=== PATIENT | male | born 1990 | race Two or more races ===

== ENCOUNTER 2024-07-11 02:19 | Emergency (ER) | payer SELFPAY ==
[2024-07-11 02:20] VITALS: BMI 23.7
[2024-07-11 02:32] VITALS: BP 144/84; PULSE 112; RESP 19; TEMP 37.6; O2SAT 100
--- NOTE | 2024-07-11 02:41 | PD.EDRME ---
Rapid Medical Screening Exam [facility] Arrival date/time: 07/11/24 02:19 34M with history of meth use presents to ED with 3 days of worsening KHAN and neck stiffness/pain, as well as some URI symptoms. Chief Complaint: Headache Vital signs: Vital Signs Temperature 99.7 F 07/11/24 02:32 Pulse Rate 112 H 07/11/24 02:32 Respiratory Rate 19 07/11/24 02:32 Blood Pressure 144/84 H 07/11/24 02:32 Pulse Oximetry (%) 100 07/11/24 02:32 Oxygen Delivery Method Room Air 07/11/24 02:32
[2024-07-11 03:15] LABS: Lactate (Lactic Acid) 1.2 mMol/L (0.4-2.0)
[2024-07-11 03:20] LABS: Basophils % (Auto) 0 % (0-2.5); Eosinophils # (Auto) 0.1 Thou/mm3 (0.0-0.5); Eosinophils % (Auto) 1 % (0-10); Hematocrit 42.4 % (41.0-53.0); Immature Granulocytes % (Auto) 0 % (0-0); Immature Granulocytes Auto 0.04 Thou/mm3 (0.00-0.00); Lymphocytes % (Auto) 8 % (10-50); Mean Corpuscular HGB Conc 35.4 g/dl (31.0-37.0); Mean Corpuscular Hemoglobin 29.3 pg (25.0-35.0); Mean Corpuscular Volume 83 fL (80-100); Monocytes # (Auto) 0.9 Thou/mm3 (0.0-0.8); Monocytes % (Auto) 7 % (0-12); Neutrophils # (Auto) 10.4 Thou/mm3 (1.8-7.7); Neutrophils % (Auto) 84 % (37-80); Nucleated Red Blood Cell % 0 /100 WBC (0); Platelet Count 183 Thou/mm3 (140-440); RDW Standard Deviation 37.3 fL (35.1-43.9); Red Blood Count 5.12 Miln/mm3 (4.50-5.90); White Blood Count 12.4 Thou/mm3 (3.8-10.6)
[2024-07-11 03:21] LABS: Strep A Rapid Negative (Negative)
[2024-07-11] MEDS: SODIUM CHLORIDE 0.9% 1000 ML 1,000 ML 999 ML IV ×2 (03:22→04:28)
[2024-07-11] MEDS: KETOROLAC INJ 30 MG/ML VIAL IVP (03:23)
[2024-07-11 03:43] LABS: Alanine Aminotransferase 26 U/L (10-49); Albumin, Serum 4.3 gm/dL (3.5-5.0); Albumin/Globulin Ratio 1.4 (1.2-2.2); Alkaline Phosphatase 67 U/L (46-116); Anion Gap 2 (7-16); Aspartate Amino Transferase 29 U/L (0-34); BUN/Creatinine Ratio 12 Ratio (12-20); Bilirubin,Total 0.9 mg/dL (0.3-1.2); Blood Urea Nitrogen 11 mg/dL (9-23); Calcium 9.4 mg/dL (8.3-10.6); Calcium (Corrected) 9.4 mg/dL (8.5-10.1); Carbon Dioxide 30.7 mMol/L (20.0-31.0); Chloride 103 mMol/L (98-107); Creatinine (Component) 0.9 mg/dL (0.6-1.3); Estimated Creatinine Clearance 126.9 mL/min (>60); Glucose 115 mg/dL (74-106); Osmolality,Calculated 272 (275-295); Potassium 4.3 mMol/L (3.4-5.1); Procalcitonin 0.09 ng/ml (0.0-0.49); Sodium 136 mMol/L (136-145); Total Protein 7.3 gm/dL (5.7-8.2); eGFR > 60 See Note
--- NOTE | 2024-07-11 04:13 | PD.EDHA ---
ED Headache RME/HPI General Chief Complaint: Headache Stated Complaint: HEADACHE X 3DAYS Arrival date/time: 07/11/24 02:19 RME / HPI RME / HPI Narrative: 07/11/24 02:19 34M with history of meth use presents to ED with 3 days of worsening KHAN and neck stiffness/pain, as well as some URI symptoms. ----- Dr. Burgos?s Main ED Evaluation: 34yo male presents to the ED for multiple complaints. Patient states he's had an intermittent cough, headache, earache, runny nose, and generalized weakness for the last few days. He reports associated generalized body aches and a sore throat. He denies any N/V/D, fever, chills, abdominal pain or any other associated symptoms. No known medications. Patient states he feels significantly better compared to when he initially came in. Related Data Previous Rx's ?Medication ?Instructions ?Recorded azithromycin 250 mg tablet See Rx Instructions PO .COMPLEX #6 08/17/18 tabs guaifenesin 100 mg/5 mL oral liquid 200 mg (10 mL) PO Q4H PRN cold 08/17/18 symptoms #118 mL ibuprofen 800 mg tablet 800 mg PO QID PRN fever or pain 08/17/18 #30 tabs ibuprofen 800 mg tablet 800 mg PO TID PRN pain #30 tabs 12/05/22 sulfamethoxazole 800 1 tab PO BID #20 tabs 12/05/22 mg-trimethoprim 160 mg tablet (Bactrim DS) acetaminophen 500 mg capsule 1,000 mg (2 x 500 mg) PO Q6H PRN 07/11/24 fever or pain 5 days #20 caps azithromycin 250 mg tablet 250 mg PO QDAY 6 days #6 tabs 07/11/24 (Zithromax) ibuprofen 600 mg tablet 600 mg PO Q6H PRN fever or pain 5 07/11/24 days #20 tabs Allergies Allergy/AdvReac Type Severity Reaction Status Date / Time No Known Allergies Allergy Verified 04/25/21 17:15 Review of Systems Review of Systems Systems Reviewed: All systems reviewed, normal except as documented Past Medical History Past Medical History CARDIAC: Negative Cardiac Disorders or Congestive Heart Failure RESPIRATORY: Negative Chronic Obstructive Pulmonary Disease (COPD) or Asthma GENITOURINARY: Negative Renal Disease ENDOCRINE: Negative Diabetes Mellitus Type 1 or Diabetes Mellitus Type 2 HEMATOLOGIC: Negative Sickle Cell Disease Social History SMOKING STATUS: Never smoker ED Exam Narrative Physical exam: GENERAL APPEARANCE: alert and oriented x 4, well-developed, well-nourished, no acute distress VITALS: All vitals were reviewed and the pulse ox is 100% on room air, which is normal according to my interpretation. HEENT: Normocephalic, atraumatic; pupils equal, round, reactive to light; EOMI; mucous membranes pink, moist; posterior oropharyngeal injection without exudates NECK: Supple LUNGS: CTABL; no wheezes, no rales, no rhonchi HEART: Tachycardic, regular rhythm; normal S1, S2; no murmurs ABDOMEN: non distended; normal BS; soft, no tenderness, no guarding, no rebound; no masses, no organomegaly, no hernia BACK: no CVA tenderness EXTREMITIES: atraumatic; no edema NEUROLOGIC: awake; alert and oriented x4; cranial nerves II-XII grossly intact; no focal sensory or motor deficits PSYCHIATRIC: appropriate mood and affect SKIN: hot to touch, dry, normal color; no rashes Course Course Course Narrative: CXR is ordered for determining the etiology of cough. Quality Measures none Orders Category Date Time Status Bedside COVID-19 Antigen Test NOW Care 07/11/24 02:39 Completed Bedside Influenza A&B Antigen Test NOW Care 07/11/24 02:40 Completed Lance Crewmember/Mlrs Sergeant STAT Care 07/11/24 04:21 Completed Continuous Pulse Oximetry STAT Care 07/11/24 04:21 Completed Insert IV NOW Care 07/11/24 02:39 Completed XR chest 2V Stat Exams 07/11/24 04:20 Taken Blood Culture (Lab) Stat Lab 07/11/24 03:10 Received CBC Stat Lab 07/11/24 03:12 Completed CMP [Comprehensive Metabolic Panel] Stat Lab 07/11/24 03:12 Completed LDH (Lactate Dehydrogenase) Stat Lab 07/11/24 03:12 Completed Lactate (Lactic Acid) Stat Lab 07/11/24 03:12 Completed Lipase Stat Lab 07/11/24 03:12 Completed Magnesium Stat Lab 07/11/24 03:12 Completed Phosphorous Stat Lab 07/11/24 03:12 Completed Procalcitonin Stat Lab 07/11/24 03:12 Completed Strep A Rapid Stat Lab 07/11/24 02:43 Completed Acetaminophen Ivpb [Ofirmev Inj] Med 07/11/24 04:23 Discontinued 1,000 mg in 100 ml IV Q6HR Ketorolac Inj [Toradol Inj] Med 07/11/24 02:41 Discontinued 30 mg IVP X1 ONE Sodium Chloride 0.9% 1000 ml [Ns] 1,000 ml Med 07/11/24 02:40 Discontinued IV 999 mls/hr Sodium Chloride 0.9% 1000 ml [Ns] 1,000 ml Med 07/11/24 04:23 Discontinued IV 999 mls/hr Vital Signs Vital signs: Vital Signs Temperature 99.7 F 07/11/24 02:32 Pulse Rate 112 H 07/11/24 02:32 Respiratory Rate 19 07/11/24 02:32 Blood Pressure 144/84 H 07/11/24 02:32 Pulse Oximetry (%) 100 07/11/24 02:32 Oxygen Delivery Method Room Air 07/11/24 02:32 Headache Patient data External records reviewed:: [facility] previous records (Per chart review, patient has no relevant previous ED visits or admissions to this facility.) Clinical information provided by:: patient Social determinants that could affect healthcare access:: substance use (history of methamphetamine use) Patient has the following chronic illnesses:: none How is presenting disease/condition affected by chronic disease/condition?: no chronic disease Evaluation data The following diagnostics were reviewed and interpreted by me:: lab results and radiology exam(s) Lab and/or radiology exams considered but not ordered:: none Interpretation Summary: Bedside COVID and Influenza are negative, Strep swab is negative, WBC count is elevated at 12.4, CMP is normal, Lactate is normal, Procalcitonin is normal, according to my interpretation. CXR is negative for rib fractures, normal cardiac silhouette, sharp diaphragmatic edge, but does show a right middle and left lower lobe infiltrates, according to my interpretation. Medications / Prescriptions Medications or Prescriptions considered but not ordered:: none Medication administrations:: Medication Administration History Discontinued Medications Sodium Chloride (Ns) 1,000 mls @ 999 mls/hr IV .Q1H1M ONE Stop: 07/11/24 03:40 Last Infusion: 07/11/24 04:01 Dose: Infused Documented By: Admin: 07/11/24 03:22 Dose: 999 mls/hr Documented By: SONJA Acetaminophen (Ofirmev Inj) 1,000 mg in 100 mls @ 250 mls/hr IV Q6HR NIRMAL Stop: 07/12/24 00:23 Last Infusion: 07/11/24 04:49 Dose: Infused Documented By: Admin: 07/11/24 04:32 Dose: 250 mls/hr Documented By: SONJA Sodium Chloride (Ns) 1,000 mls @ 999 mls/hr IV .Q1H1M ONE Stop: 07/11/24 05:23 Last Admin: 07/11/24 04:28 Dose: 999 mls/hr Documented By: SONJA Ketorolac Tromethamine (Ketorolac Inj 30 Mg/Ml Vial) 30 mg IVP X1 ONE Stop: 07/11/24 02:42 Last Admin: 07/11/24 03:23 Dose: 30 mg Documented By: SONJA see above Consultations Consultation(s) initiated? (list below): No Diagnosis Differential diagnosis headache: tension headache, headache and other (COVID, Influenza, URI, pneumonia) Most likely diagnosis given after review of the tests above:: see below Admission Indicated Admission indicated?: not indicated Admission Request Was there a request for admission?: No Disposition Plan Disposition Plan: Discharge Discharge Attestation Discharge Attestation: The patient and all family members were given an opportunity to ask questions and understood the discharge instructions. Discharge instructions specifically effects, indications for sooner follow up or return to the emergency department, and the expected course of current diagnosis. Patient condition: Stable Discharge Plan Plan Patient Disposition: HOME (Self Care) Disposition Comment: Stable for discharge Patient condition on transfer: Stable Prescriptions/Referrals Prescriptions/Med Rec: New azithromycin [Zithromax] 250 mg tablet 250 mg PO QDAY 6 Days Qty: 6 0RF Rx Instructions: start on day 2 of therapy ibuprofen 600 mg tablet 600 mg PO Q6H PRN (Reason: fever or pain) 5 Days Qty: 20 0RF acetaminophen 500 mg capsule 1,000 mg PO Q6H PRN (Reason: fever or pain) 5 Days Qty: 20 0RF No Action azithromycin 250 mg tablet See Rx Instructions .ROUTE .COMPLEX Qty: 6 0RF Rx Instructions: take 2 tabs on the first day and take 1 tablet for the remaining 4 days. ibuprofen 800 mg tablet 800 mg PO QID PRN (Reason: fever or pain) Qty: 30 0RF guaifenesin 100 mg/5 mL liquid 200 mg PO Q4H PRN (Reason: cold symptoms) Qty: 118 0RF sulfamethoxazole-trimethoprim [Bactrim DS] 800-160 mg tablet 1 tab PO BID Qty: 20 0RF ibuprofen 800 mg tablet 800 mg PO TID PRN (Reason: pain) Qty: 30 0RF Referrals: Paco Barney MD [Primary Care Provider] - In 1 week Problem List Clinical Impression: Community acquired pneumonia Patient/Caregiver Discharge Instructions Discharge Activity: activity as tolerated Education Materials: What Is Pneumonia?, Treating Pneumonia, When You Have Pneumonia, ED Pneumonia (Adult) Additional Instructions: Your chest x-ray shows that you have a pneumonia. You should take the antibiotics until they are completely gone, even if you feel better before then. Take the Motrin and Tylenol as needed for fever and/or bodyaches and pains. Please return to the ER if you feel like you are getting sicker in any way Otherwise follow-up with your primary care doctor within the next several days Print Language: Slovenian Stand Alone Forms: Li Award Info., Work/School Release, Patient Portal Info Letter
--- NOTE | 2024-07-11 04:20 | XR_ITS ---
Examination: PA lateral chest 2 views Technique: Upright PA lateral chest 2 views Exam date and time: July 11, 2024 0438 hrs. Comparison December 05, 2022 Indications: Coughing fever chills beginning 3 days ago. Findings: Nodular parenchymal disease in both upper lobes Normal heart size The osseous structures are intact Impression: Bilateral upper lobe pneumonia significant right upper lobe, follow-up imaging is needed to document clearing
[2024-07-11 04:24] VITALS: BP 124/75; BP 130/77; PULSE 91; PULSE 97; RESP 17; TEMP 37.4; O2SAT 97; O2SAT 98
[2024-07-11] MEDS: ACETAMINOPHEN IVPB 1,000 MG/100 ML VIAL 250 MG IV (04:32)
[2024-07-11 05:09] LABS: LDH (Lactate Dehydrogenase) 216 U/L (120-246); Lipase 48 U/L (12-53); Magnesium 1.8 mg/dL (1.6-2.6); Phosphorous 2.1 mg/dL (2.4-5.1)
[2024-07-11 05:43] VITALS: BP 126/77; PULSE 91; RESP 18; O2SAT 98
== END 2024-07-11 05:44 | disposition home or self-care (01) ==
PROVIDERS: Physician Assistant; Emergency Provider Emergency Medicine; PCP Family Medicine
DX: J18.9 Pneumonia, unspecified organism (principal)
CPT/HCPCS: 36415; 71046; 80053; 80061; 80307; 83605; 83615; 83690; 83735; 84100; 84145; 85025; 87040; 87400; 87651; 87811; 96361; 96365; 99284; J0131; J1885; J7030

== ENCOUNTER 2024-09-28 06:33 | Emergency (ER) | payer BC, SELFPAY ==
[2024-09-28 06:33] VITALS: BMI 24.6
[2024-09-28 06:42] VITALS: BP 122/70; PULSE 113; RESP 19; TEMP 37.6; O2SAT 98
--- NOTE | 2024-09-28 06:49 | EDNOTE_ITS ---
Upper Respiratory Inf. RME/HPI General Chief Complaint: Weakness Stated Complaint: weakness, headache Time Seen by Provider: 09/28/24 06:51 Source: patient Arrival date/time: 09/28/24 06:33 34-year-old male with no known medical history presents to the emergency room with a chief complaint of cough, congestion, weakness, headache x 2 days Mode of arrival: ambulatory Limitations: no limitations Related Data Previous Rx's ?Medication ?Instructions ?Recorded azithromycin 250 mg tablet See Rx Instructions PO .COM PLEX #6 08/17/18 tabs guaifenesin 100 mg/5 mL oral liquid 200 mg (10 mL) PO Q4H PRN cold 08/17/18 symptoms #118 mL ibuprofen 800 mg tablet 800 mg PO QID PRN fever or p ain 08/17/18 #30 tabs ibuprofen 800 mg tablet 800 mg PO TID PRN pain #30 t abs 12/05/22 sulfamethoxazole 800 1 tab PO BID #20 tabs mg-trimethoprim 160 mg tablet (Bactrim DS) amoxicillin 875 mg-potassium 1 tab PO BID 7 days #14 t abs 09/28/24 clavulanate 125 mg tablet Allergies Allergy/AdvReac Type Severity Reaction Status Date / Time No Known Allergies Allergy Verified 04/25/21 17:15 Review of Systems Review of Systems Systems Reviewed: All systems reviewed, normal except as documented Constitutional Constitutional: Reports system reviewed and no additional complaints, except as documented, Reports fatigue, Reports fever(s), Reports headache(s) and Reports weakness Eyes Eyes: Reports system reviewed and no additional complaints, except as documented, Denies blurry vision and Denies change in vision ENT Ears, Nose, Mouth, and Throat: Reports system reviewed and no additional complaints, except as documented, Denies otalgia, Reports headache(s), Denies nasal congestion, Denies throat swelling and Denies vertigo Cardiovascular Cardiovascular: Reports system reviewed and no additional complaints, except as documented, Denies chest pain, Denies dyspnea and Denies dyspnea on exertion Respiratory Respiratory: Reports system reviewed and no additional complaints, except as documented, Reports chest congestion, Reports cough, Denies dyspnea, Denies dyspnea on exertion and Denies wheezing Gastrointestinal Gastrointestinal: Reports system reviewed and no additional complaints, except as documented, Denies abdominal pain, Denies cramping, Denies nausea and Denies vomiting Genitourinary Genitourinary: Reports system reviewed and no additional complaints, except as documented, Denies dysuria and Denies hematuria Musculoskeletal Musculoskeletal: Reports system reviewed and no additional complaints, except as documented and Denies back pain Integumentary/Breasts Skin/Breast: Reports system reviewed and no additional complaints, except as documented and Denies wounds Neurologic Neurologic: Reports system reviewed and no additional complaints, except as documented, Denies confusion, Reports headache(s), Denies lack of coordination, Denies vertigo and Reports weakness Psychiatric Psychiatric: Reports system reviewed and no additional complaints, except as documented, Denies anxiety, Denies confusion, Denies depression, Denies paranoia, Denies suicidal ideation and Denies tactile hallucinations Endocrine Endocrine: Reports system reviewed and no additional complaints, except as documented and Reports fatigue Hematologic/Lymphatic Hematologic/Lymphatic: Reports system reviewed and no additional complaints, except as documented and Denies lymphadenopathy Allergic/Immunologic Allergic/Immunologic: Reports system reviewed and no additional complaints, except as documented, Denies throat swelling, Denies urticaria and Denies wheezing Past Medical History Past Medical History CARDIAC: Negative Cardiac Disorders or Congestive Heart Failure RESPIRATORY: Negative Chronic Obstructive Pulmonary Disease (COPD) or Asthma GENITOURINARY: Negative Renal Disease ENDOCRINE: Negative Diabetes Mellitus Type 1 or Diabetes Mellitus Type 2 HEMATOLOGIC: Negative Sickle Cell Disease Social History SMOKING STATUS: Never smoker ED Exam General Limitations: Present no limitations General appearance: Present alert and in no apparent distress Head Head exam: Present atraumatic Eye Eye exam: Present normal appearance, PERRL and EOMI ENT ENT exam: Present normal exam, normal oropharynx and mucous membranes moist Neck Neck exam: Present normal inspection, full ROM and trachea midline Chest Chest inspection: Present normal inspection and symmetric chest wall rise Respiratory Respiratory exam: Present normal lung sounds bilaterally; Absent respiratory dis tress, wheezes, stridor, accessory muscle use or prolonged expiratory phase Cardiovascular Cardiovascular exam: Present regular rate, normal rhythm, tachycardia and normal heart sounds Abdominal Exam Abdominal exam: Present soft and normal bowel sounds; Absent tenderness Extremities Exam Extremities exam: Present normal inspection and full ROM Back Exam Back exam: Present normal inspection and full ROM Neurological Exam Neurological exam: Present alert, oriented X3 and CN II-XII intact Psychiatric Psychiatric exam: Present normal affect and normal mood Skin Skin exam: Present warm, dry, intact and normal color Course Quality Measures none Orders Category Date Time Status Bedside COVID-19 Antigen Test NOW Care 09/28/24 06:49 Active Bedside Influenza A&B Antigen Test NOW Care 09/28/24 06:49 Completed XR chest 2V Stat Exams 09/28/24 06:49 Completed Acetaminophen Tab [Tylenol ES Tab] Med 09/28/24 06:49 Discontinued 1,000 mg PO X1 ONE Vital Signs Vital signs: Vital Signs Temperature 99.6 F 09/28/24 06:42 Pulse Rate 113 H 09/28/24 06:42 Respiratory Rate 19 09/28/24 06:42 Blood Pressure 122/70 09/28/24 06:42 Pulse Oximetry (%) 98 09/28/24 06:42 Oxygen Delivery Method Room Air 09/28/24 06:42 O2 saturation 98% within normal limits Upper Respiratory Infection MDM Narrative MDM Narrative:: 34-year-old male with no known medical history presents to the emergency room with a chief complaint of cough, congestion, weakness, headache x 2 days Patient is hemodynamically stable and in no apparent distress. Patient is afebrile O2 saturation is 98% on room air Patient's lung sounds are clear bilaterally there is no wheezing or any abnormal breath sounds Chest x-ray was completed and shows pneumonia to the right lung. Antibiotics are sent to the patient's pharmacy. COVID-19 and influenza were both negative. Patient was discharged and educated to follow-up with primary care provider and return to the emergency room for any evidence of worsening signs or symptoms Patient data External records reviewed:: [facility] previous records Clinical information provided by:: patient Social determinants that could affect healthcare access:: none Patient has the following chronic illnesses:: No chronic illness How is presenting disease/condition affected by chronic disease/condition?: no chronic disease Evaluation data The following diagnostics were reviewed and interpreted by me:: lab results and radiology exam(s) Lab and/or radiology exams considered but not ordered:: Labs and radiology exams considered and ordered Interpretation Summary: Chest [id number]: Fairly diffuse right lung pneumonia Suspicious for mild pneumonia left base Normal heart size The osseous structures are intact Impression: Fairly diffuse right lung pneumonia Medications / Prescriptions Medications or Prescriptions considered but not ordered:: Medication given Medication administrations:: Medication Administration History Discontinued Medications Acetaminophen (Acetaminophen 500 Mg Tablet) 1,000 mg PO X1 ONE Stop: 09/28/24 06:50 Last Admin: 09/28/24 07:08 Dose: 1,000 mg Documented By: DB Medication given Consultations Consultation(s) initiated? (list below): No Diagnosis Upper Respiratory Differential Diagnosis: upper respiratory infection, sinusitis, viral infection, bronchitis, influenza, pharyngitis and other (COVID-19/community-acquired pneumonia) Most likely diagnosis given after review of the tests above:: Community-acquired pneumonia Admission Indicated Admission indicated?: not indicated Admission Request Was there a request for admission?: No Disposition Plan Disposition Plan: Discharge Discharge Attestation Discharge Attestation: The patient and all family members were given an opportunity to ask questions and understood the discharge instructions. Discharge instructions specifically effects, indications for sooner follow up or return to the emergency department, and the expected course of current diagnosis. Patient condition: Stable Discharge Plan Plan Patient Disposition: HOME (Self Care) Disposition Comment: Stable Prescriptions/Referrals Prescriptions/Med Rec: New amoxicillin-pot clavulanate 875-125 mg tablet 1 tab PO BID 7 Days Qty: 14 0RF No Action azithromycin 250 mg tablet See Rx Instructions .ROUTE .COMPLEX Qty: 6 0RF Rx Instructions: take 2 tabs on the first day and take 1 tablet for the remaining 4 days. ibuprofen 800 mg tablet 800 mg PO QID PRN (Reason: fever or pain) Qty: 30 0RF guaifenesin 100 mg/5 mL liquid 200 mg PO Q4H PRN (Reason: cold symptoms) Qty: 118 0RF sulfamethoxazole-trimethoprim [Bactrim DS] 800-160 mg tablet 1 tab PO BID Qty: 20 0RF ibuprofen 800 mg tablet 800 mg PO TID PRN (Reason: pain) Qty: 30 0RF Referrals: No Primary/Family,Physician [Primary Care Provider] - In 1 week Problem List Clinical Impression: Community acquired pneumonia Patient/Caregiver Discharge Instructions Education Materials: ED Pneumonia (Adult) Additional Instructions: Please follow-up with your primary care provider in the next 24 to 48 hours. Your chest x-ray showed pneumonia. Antibiotics are sent to your pharmacy please pick them up and take them as indicated. For any evidence of worsening signs or symptoms return to the emergency room immediately Print Language: Persian Stand Alone Forms: Li Award Info., Work/School Release, Patient Portal Info Letter PA/KEISHA Supervising Physician PA/ARRESTING GEAR OPERATOR Supervising Physician: Dr Rodriguez
--- NOTE | 2024-09-28 06:49 | XR_ITS ---
Examination: PA lateral chest 2 views Technique: Upright PA lateral chest 2 views Exam date and time: September 28, 2024 0702 hrs. Comparison July 11, 2024 Indications: Coughing fever beginning 2 days ago. Findings: Fairly diffuse right lung pneumonia Suspicious for mild pneumonia left base Normal heart size The osseous structures are intact Impression: Fairly diffuse right lung pneumonia
[2024-09-28] MEDS: ACETAMINOPHEN 500 MG TABLET 1000 MG PO (07:08)
[2024-09-28 08:27] VITALS: BP 118/68; PULSE 107; RESP 20; TEMP 37.5; O2SAT 98
== END 2024-09-28 09:09 | disposition home or self-care (01) ==
PROVIDERS: Emergency Provider Emergency Medicine
DX: J18.9 Pneumonia, unspecified organism (principal)
CPT/HCPCS: 71046; 87400; 87811; 99283; A9270

== ENCOUNTER 2025-02-03 20:18 | Emergency (ER) | payer BC, SELFPAY ==
[2025-02-03 20:18] VITALS: BMI 26.9
[2025-02-03 20:37] VITALS: BP 132/81; PULSE 118; RESP 18; TEMP 36.9; O2SAT 99
--- NOTE | 2025-02-03 20:43 | XR_ITS ---
Examination: Venous duplex lower extremity sonogram, bilateral. Date and time of exam: February 03, 2025 2114 hours INDICATIONS: Bilateral leg swelling 3 days Technique: Multiple sonographic images of the deep venous system have been obtained. B-mode/2-D grayscale imaging of vascular structures and Doppler spectral analysis (waveforms) and color performed Both legs are examined. Findings: Deep venous systems do not demonstrate abnormal echogenicity. All visualized deep veins exhibit compressibility. All visualized deep veins exhibit augmentation. Impression: Negative for deep vein thrombosis
--- NOTE | 2025-02-03 20:43 | XR_ITS ---
Examination: PA chest single view Technique upright PA chest single view Date and time: February 03, 20252050 hours Comparison September 28, 2024 INDICATIONS: Bilateral leg swelling today. FINDINGS: No significant cardiac enlargement No pneumonia or pulmonary edema The osseous structures are intact IMPRESSION: No pneumonia or pulmonary edema
--- NOTE | 2025-02-03 20:44 | EKG_ITS ---
[facility] Test Date: 2025-02-03 Pat Name: RAZA RILEY Department: Room: - Gender: Male Inventory Transcriber: : 1990 Requested By: Kj Wang Order Number: [id number] Reading MD: Kj Wang Measurements Intervals [place] Rate: 123 P: 61 DC: 161 QRS: 31 QRSD: 93 T: 52 QT: 301 QTc: 432 Interpretive Statements SINUS TACHYCARDIA ABNORMAL RHYTHM ECG Compared to ECG 12/05/2022 12:54:47 No significant changes /store/S0/[id number].pdf
--- NOTE | 2025-02-03 20:44 | PD.EDRME ---
Rapid Medical Screening Exam [facility] Arrival date/time: 02/03/25 20:18 34M with history of meth use (yesterday) presents to ED with BLE swelling. Patient states he was kneeling on them. Patient denies current SOB. Chief Complaint: Extremity Injury, Lower Time Seen by Provider: 02/03/25 22:01 Vital signs: Vital Signs Temperature 98.4 F 02/03/25 20:37 Pulse Rate 118 H 02/03/25 20:37 Respiratory Rate 18 02/03/25 20:37 Blood Pressure 132/81 H 02/03/25 20:37 Pulse Oximetry (%) 99 02/03/25 20:37 Oxygen Delivery Method Room Air 02/03/25 20:37
[2025-02-03 21:06] LABS: Basophils % (Auto) 0 % (0-2.5); Eosinophils # (Auto) 0.2 Thou/mm3 (0.0-0.5); Eosinophils % (Auto) 2 % (0-10); Hematocrit 41.5 % (41.0-53.0); Hemoglobin 14.7 g/dL (13.5-16.0); Immature Granulocytes % (Auto) 1 % (0-0); Immature Granulocytes Auto 0.04 Thou/mm3 (0.00-0.00); Lymphocytes # (Auto) 2.9 Thou/mm3 (1.0-4.8); Lymphocytes % (Auto) 32 % (10-50); Mean Corpuscular HGB Conc 35.4 g/dl (31.0-37.0); Mean Corpuscular Hemoglobin 28.8 pg (25.0-35.0); Mean Corpuscular Volume 81 fL (80-100); Monocytes # (Auto) 1.5 Thou/mm3 (0.0-0.8); Monocytes % (Auto) 16 % (0-12); Neutrophils # (Auto) 4.3 Thou/mm3 (1.8-7.7); Neutrophils % (Auto) 48 % (37-80); Nucleated Red Blood Cell % 0 /100 WBC (0); Platelet Count 252 Thou/mm3 (140-440); RDW Standard Deviation 37.2 fL (35.1-43.9); Red Blood Count 5.11 Miln/mm3 (4.50-5.90); White Blood Count 8.8 Thou/mm3 (3.8-10.6)
[2025-02-03 21:23] LABS: B-Type Natriuretic Peptide 36 pg/mL (0-100)
[2025-02-03 21:25] LABS: Alanine Aminotransferase 31 U/L (10-49); Albumin, Serum 3.8 gm/dL (3.5-5.0); Albumin/Globulin Ratio 1.8 (1.2-2.2); Alkaline Phosphatase 48 U/L (46-116); Anion Gap 7 (7-16); Aspartate Amino Transferase 27 U/L (0-34); BUN/Creatinine Ratio 7 Ratio (12-20); Bilirubin,Total 0.5 mg/dL (0.3-1.2); Blood Urea Nitrogen 7 mg/dL (9-23); Calcium 9.4 mg/dL (8.3-10.6); Calcium (Corrected) 9.6 mg/dL (8.5-10.1); Carbon Dioxide 28.6 mMol/L (20.0-31.0); Chloride 105 mMol/L (98-107); Estimated Creatinine Clearance 114.2 mL/min (>60); Globulin 2.1 gm/dL (2.3-3.5); Glucose 104 mg/dL (74-106); Osmolality,Calculated 279 (275-295); Potassium 3.6 mMol/L (3.4-5.1); Sodium 141 mMol/L (136-145); Total Protein 5.9 gm/dL (5.7-8.2); Troponin I < 0.020 ng/mL (0.0-0.045); eGFR > 60 See Note
[2025-02-03] MEDS: ACYCLOVIR 800 MG TABLET PO (22:35)
[2025-02-03] MEDS: DOXYCYCLINE 100 MG TABLET PO (22:35)
[2025-02-03] MEDS: cefTRIAXone 500 MG, LIDOCAINE 1% 20 ML 1 ML IM (22:37)
--- NOTE | 2025-02-04 00:59 | EDNOTE_ITS ---
ED Extremity Problem RME/HPI General Chief complaint: Extremity Injury, Lower Stated complaint: SWOLLEN LEGS Time Seen by Provider: 02/03/25 22:01 Arrival date/time: 02/03/25 20:18 RME / HPI RME / HPI Narrative: 02/03/25 20:18 34M with history of meth use (yesterday) presents to ED with BLE swelling. Patient states he was kneeling on them. Patient denies current SOB. DR LAMBERT MAIN ED EVALUATION: 34 y/o male presents to ED c/o BLE swelling and warmth to touch around BL calf area x 3 days. States laying down or putting his feet up does not improve swelling. Denies any swelling of the groin area. Denies any pain or lesions. Patient denies shortness of breath, chest pain, or any other associated symptoms or aggravating factors. No modifying factors, no radiation, no migration. No pain reported overall. No other concerns or complaints expressed at this time. Related Data Previous Rx's ?Medication ?Instructions ?Recorded azithromycin 250 mg tablet See Rx Instructions PO .COM PLEX #6 08/17/18 tabs guaifenesin 100 mg/5 mL oral liquid 200 mg (10 mL) PO Q4H PRN cold 08/17/18 symptoms #118 mL ibuprofen 800 mg tablet 800 mg PO QID PRN fever or p ain 08/17/18 #30 tabs ibuprofen 800 mg tablet 800 mg PO TID PRN pain #30 t abs 12/05/22 sulfamethoxazole 800 1 tab PO BID #20 tabs mg-trimethoprim 160 mg tablet (Bactrim DS) Allergies Allergy/AdvReac Type Severity Reaction Status Date / Time No Known Allergies Allergy Verified 04/25/21 17:15 Review of Systems Review of Systems Systems Reviewed: All systems reviewed, normal except as documented ED Exam Narrative Physical exam: GENERAL APPEARANCE: alert and oriented x 4, well-developed, well-nourished, no acute distress VITALS: All vitals were reviewed and the pulse ox is 99% on room air, which is normal according to my interpretation. HEENT: Normocephalic, atraumatic; pupils equal, round, reactive to light; EOMI; mucous membranes pink, moist; oropharynx clear NECK: Supple LUNGS: CTABL; no wheezes, no rales, no rhonchi HEART: Regular rate, regular rhythm; normal S1, S2; no murmurs ABDOMEN: non distended; normal BS; soft, no tenderness, no guarding, no rebound; no masses, no organomegaly, no hernia BACK: no CVA tenderness EXTREMITIES: atraumatic; BLE edema NEUROLOGIC: awake; alert and oriented x4; cranial nerves II-XII grossly intact; no focal sensory or motor deficits PSYCHIATRIC: appropriate mood and affect SKIN: warm, dry, normal color; no rashes Course Course Course Narrative: CXR is ordered for determining the etiology of shortness of breath. Quality Measures none Orders Category Date Time Status EKG (ED ONLY) *Do not use* NOW Care 02/03/25 20:44 Completed EKG (ED Only) Stat Exams 02/03/25 20:44 Draft US venous doppler LE BI Stat Exams 02/03/25 20:43 Completed XR chest 1V portable Stat Exams 02/03/25 20:43 Completed B-Type Natriuretic Peptide Stat Lab 02/03/25 20:58 Completed CBC Stat Lab 02/03/25 20:58 Completed Comprehensive Metabolic Panel Stat Lab 02/03/25 20:58 Completed Troponin I Stat Lab 02/03/25 20:58 Completed Acyclovir [Zovirax] Med 02/03/25 22:10 Discontinued 800 mg PO X1 ONE Doxycycline [Vibramycin] Med 02/03/25 22:08 Discontinued 100 mg PO X1 ONE cefTRIAXone [Rocephin] 500 mg Med 02/03/25 22:08 Discontinued Lidocaine 1% 20 ml [Xylocaine 1% 20 ML] 1 ml IM X1 Vital Signs Vital signs: Vital Signs Temperature 98.4 F 02/03/25 20:37 Pulse Rate 118 H 02/03/25 20:37 Respiratory Rate 18 02/03/25 20:37 Blood Pressure 132/81 H 02/03/25 20:37 Pulse Oximetry (%) 99 02/03/25 20:37 Oxygen Delivery Method Room Air 02/03/25 20:37 Extremity Problem MDM Narrative MDM Narrative:: Scribe Attestation: Tracie Mendoza, am scribing for and in the presence of Dr. Lambert. Provider Notation: Although this document has been carefully reviewed, there may still be some phonetic and other typographical errors.? These errors are purely grammatical due to imperfections in the software program and should not be construed in any way to? compromise the substance of the patient's medical care during this visit. Patient data External records reviewed:: [facility] previous records (Reviewed prior ED records from 09/28/24. Patient was seen for Community acquired pneumonia.) Clinical information provided by:: patient Social determinants that could affect healthcare access:: none Patient has the following chronic illnesses:: None reported How is presenting disease/condition affected by chronic disease/condition?: no chronic disease Evaluation data The following diagnostics were reviewed and interpreted by me:: lab results, rad iology exam(s) and EKG tracing(s) (EKG performed at 20:50, manual reading, my interpretation: sinus tachycardia, rate: 123 bpm, no acute ischemic changes.) Lab and/or radiology exams considered but not ordered:: None Interpretation Summary: RADIOLOGY Chest X-Ray: Patient: RAZA RILEY [facility]. Record#: [id number] Birthdate: 1990 Age/Sex: 34 / M Location: [facility] Attending Dr: Ordering Physician: Kj Wang PA-C Date of Service: 02/03/25 Procedure(s): XR chest 1V portable Accession Number(s): [id number] cc: Paco Barney MD; Bin Palomares MD; Kj Wang PA-C~ Examination: PA chest single view Technique upright PA chest single view Date and time: February 03, 20252050 hours Comparison September 28, 2024 INDICATIONS: Bilateral leg swelling today. FINDINGS: No significant cardiac enlargement No pneumonia or pulmonary edema The osseous structures are intact IMPRESSION: No pneumonia or pulmonary edema Dictated By: Bin Palomares MD Signed By: <Electronically signed by Bin Palomares MD in OV> 02/03/252105 Venous Doppler Study: Patient: RAZA RILEY Med. Record#: [id number] Birthdate: 1990 Age/Sex: 34 / M Location: [facility] Attending Dr: Ordering Physician: Kj Wang PA-C Date of Service: 02/03/25 Procedure(s): US venous doppler LE BI Accession Number(s): [id number] cc: Paco Barney MD; Bin Palomares MD; Kj Wang PA-C~ Examination: Venous duplex lower extremity sonogram, bilateral. Date and time of exam: February 03, 2025 2114 hours INDICATIONS: Bilateral leg swelling 3 days Technique: Multiple sonographic images of the deep venous system have been obtained. B-mode/2-D grayscale imaging of vascular structures and Doppler spectral analysis (waveforms) and color performed Both legs are examined. Findings: Deep venous systems do not demonstrate abnormal echogenicity. All visualized deep veins exhibit compressibility. All visualized deep veins exhibit augmentation. Impression: Negative for deep vein thrombosis Dictated By: Bin Palomares MD Signed By: <Electronically signed by Bni Palomares MD in OV> 02/03/25 2155 Medications / Prescriptions Medications or Prescriptions considered but not ordered:: None Medication administrations:: Medication Administration History Discontinued Medications Acyclovir (Acyclovir 800 Mg Tablet) 800 mg PO X1 ONE Stop: 02/03/25 22:11 Last Admin: 02/03/25 22:35 Dose: 800 mg Documented By: DAV Ceftriaxone Sodium 500 mg/ (Lidocaine HCl 1 ml) 0 mg IM X1 ONE Stop: 02/03/25 22:09 Last Admin: 02/03/25 22:37 Dose: 1,000 mg Documented By: DAV Comments: 12.1 ml Doxycycline Hyclate (Doxycycline 100 Mg Tablet) 100 mg PO X1 ONE Stop: 02/03/25 22:09 Last Admin: 02/03/25 22:35 Dose: 100 mg Documented By: DAV See above if any Consultations Consultation(s) initiated? (list below): No Diagnosis Extremity Problem Differential Diagnosis: herpes zoster, gout, cellulitis, superficial thrombophlebitis, lower extremity edema and deep vein thrombosis of lower extremity Most likely diagnosis given after review of the tests above:: Pedal Edema Admission Indicated Admission indicated?: not indicated Explain why admission is indicated or not indicated:: Patient does not meet admission criteria. Admission Request Was there a request for admission?: No Disposition Plan Disposition Plan: Discharge Discharge Attestation Discharge Attestation: The patient and all family members were given an opportunity to ask questions and understood the discharge instructions. Discharge instructions specifically effects, indications for sooner follow up or return to the emergency department, and the expected course of current diagnosis. Patient condition: Stable Discharge Plan Plan Patient Disposition: HOME (Self Care) Prescriptions/Referrals Prescriptions/Med Rec: No Action azithromycin 250 mg tablet See Rx Instructions .ROUTE .COMPLEX Qty: 6 0RF Rx Instructions: take 2 tabs on the first day and take 1 tablet for the remaining 4 days. ibuprofen 800 mg tablet 800 mg PO QID PRN (Reason: fever or pain) Qty: 30 0RF guaifenesin 100 mg/5 mL liquid 200 mg PO Q4H PRN (Reason: cold symptoms) Qty: 118 0RF sulfamethoxazole-trimethoprim [Bactrim DS] 800-160 mg tablet 1 tab PO BID Qty: 20 0RF ibuprofen 800 mg tablet 800 mg PO TID PRN (Reason: pain) Qty: 30 0RF Referrals: Paco Barney MD [Primary Care Provider] - In 1 week Problem List Clinical Impression: Pedal edema Patient/Caregiver Discharge Instructions Education Materials: ED Leg Swelling in Both Legs Print Language: Tanzanian Stand Alone Forms: Li Award Info., Patient Portal Info Letter
== END 2025-02-04 01:07 | disposition home or self-care (01) ==
PROVIDERS: Physician Assistant; Emergency Provider Emergency Medicine; PCP Family Medicine
DX: R60.0 Localized edema (principal); R94.31 Abnormal electrocardiogram [ECG] [EKG]
CPT/HCPCS: 36415; 71045; 80053; 83880; 84484; 85025; 93005; 93970; 96372; 99284; J0696; J3490; A9270

== ENCOUNTER 2025-05-08 22:53 | Emergency (ER) | payer BC, SELFPAY ==
[2025-05-08 22:54] VITALS: BMI 24.4
[2025-05-08 23:16] VITALS: BP 139/75; PULSE 109; RESP 18; TEMP 37.7; O2SAT 98
--- NOTE | 2025-05-08 23:36 | PD.EDURI ---
Upper Respiratory Inf. RME/HPI General Chief Complaint: Flu Like Symptoms Stated Complaint: FEVER SORE THROAT COUGH CONGESTION Time Seen by Provider: 05/08/25 23:35 Arrival date/time: 05/08/25 22:53 35M with no significant PMH presents to ED with 2 days of cough, sore throat, and fevers/chills. Limitations: no limitations Related Data Previous Rx's ?Medication ?Instructions ?Recorded azithromycin 250 mg tablet See Rx Instructions PO .COMPLEX #6 08/17/18 tabs guaifenesin 100 mg/5 mL oral liquid 200 mg (10 mL) PO Q4H PRN cold 08/17/18 symptoms #118 mL ibuprofen 800 mg tablet 800 mg PO QID PRN fever or pain 08/17/18 #30 tabs ibuprofen 800 mg tablet 800 mg PO TID PRN pain #30 tabs 12/05/22 sulfamethoxazole 800 1 tab PO BID #20 tabs 12/05/22 mg-trimethoprim 160 mg tablet (Bactrim DS) Allergies Allergy/AdvReac Type Severity Reaction Status Date / Time No Known Allergies Allergy Verified 05/08/25 22:57 Review of Systems Review of Systems Systems Reviewed: All systems reviewed, normal except as documented Constitutional Constitutional: Reports as per HPI, Reports chills and Reports fever(s) ENT Ears, Nose, Mouth, and Throat: Reports as per HPI and Reports sore throat Respiratory Respiratory: Reports as per HPI and Reports cough Past Medical History Past Medical History CARDIAC: Negative Cardiac Disorders or Congestive Heart Failure RESPIRATORY: Negative Chronic Obstructive Pulmonary Disease (COPD) or Asthma GENITOURINARY: Negative Renal Disease ENDOCRINE: Negative Diabetes Mellitus Type 1 or Diabetes Mellitus Type 2 HEMATOLOGIC: Negative Sickle Cell Disease Social History SMOKING STATUS: Never smoker ED Exam General Limitations: Present no limitations General appearance: Present alert and in no apparent distress Head Head exam: Present atraumatic ENT ENT exam: Present mucous membranes moist Expanded ENT Exam Throat exam: Present tonsillar erythema and tonsillomegaly; Absent tonsillar exudate, R peritonsillar mass, L peritonsillar mass or muffled voice Neck Neck exam: Present normal inspection, full ROM and trachea midline Chest Chest inspection: Present normal inspection and symmetric chest wall rise Respiratory Respiratory exam: Present normal lung sounds bilaterally Neurological Exam Neurological exam: Present alert and oriented X3 Psychiatric Psychiatric exam: Present normal affect and normal mood Skin Skin exam: Present warm, dry, intact and normal color Course Quality Measures none Orders Category Date Time Status Bedside COVID-19 Antigen Test NOW Care 05/08/25 23:09 Active Strep A Rapid Stat Lab 05/08/25 23:38 Completed Naproxen [Naprosyn] Med 05/08/25 23:36 Discontinued 500 mg PO X1 ONE Vital Signs Vital signs: Vital Signs Temperature 99.8 F 05/08/25 23:16 Pulse Rate 109 H 05/08/25 23:16 Respiratory Rate 18 05/08/25 23:16 Blood Pressure 139/75 H 05/08/25 23:16 Pulse Oximetry (%) 98 05/08/25 23:16 Oxygen Delivery Method Room Air 05/08/25 23:16 O2 at 98% on RA and WNLs Upper Respiratory Infection MDM Narrative MDM Narrative:: 35M with no significant PMH presents to ED with 2 days of cough, sore throat, and fevers/chills. Physical exam reveals red and swollen ororpharynx, but clear lungs and normal WOB. Patient is afebrile, calm, and alert. Swabs neg. Meds and public relations counselor given. Patient data External records reviewed:: [facility] previous records Clinical information provided by:: patient Social determinants that could affect healthcare access:: none Patient has the following chronic illnesses:: none How is presenting disease/condition affected by chronic disease/condition?: no chronic disease Evaluation data The following diagnostics were reviewed and interpreted by me:: lab results Lab and/or radiology exams considered but not ordered:: ordered Interpretation Summary: above Medications / Prescriptions Medications or Prescriptions considered but not ordered:: ordered Medication administrations:: Medication Administration History Discontinued Medications Naproxen (Naproxen 250 Mg Tablet) 500 mg PO X1 ONE Stop: 05/08/25 23:37 Last Admin: 05/08/25 23:41 Dose: 500 mg Documented By: BD above Consultations Consultation(s) initiated? (list below): No Diagnosis Upper Respiratory Differential Diagnosis: upper respiratory infection, croup, otitis media, sinusitis, viral infection, bronchitis, influenza and pharyngitis Most likely diagnosis given after review of the tests above:: URI Admission Indicated Admission indicated?: not indicated Admission Request Was there a request for admission?: No Disposition Plan Disposition Plan: Discharge Discharge Attestation Discharge Attestation: The patient and all family members were given an opportunity to ask questions and understood the discharge instructions. Discharge instructions specifically effects, indications for sooner follow up or return to the emergency department, and the expected course of current diagnosis. Patient condition: Stable Discharge Plan Plan Patient Disposition: HOME (Self Care) Discharge Disposition comment: Stable Prescriptions/Referrals Prescriptions/Med Rec: No Action azithromycin 250 mg tablet See Rx Instructions .ROUTE .COMPLEX Qty: 6 0RF Rx Instructions: take 2 tabs on the first day and take 1 tablet for the remaining 4 days. ibuprofen 800 mg tablet 800 mg PO QID PRN (Reason: fever or pain) Qty: 30 0RF guaifenesin 100 mg/5 mL liquid 200 mg PO Q4H PRN (Reason: cold symptoms) Qty: 118 0RF sulfamethoxazole-trimethoprim [Bactrim DS] 800-160 mg tablet 1 tab PO BID Qty: 20 0RF ibuprofen 800 mg tablet 800 mg PO TID PRN (Reason: pain) Qty: 30 0RF Referrals: No Primary/Family,Physician [Primary Care Provider] - In 1 week Problem List Clinical Impression: Upper respiratory infection Patient/Caregiver Discharge Instructions Education Materials: ED URI, Viral, No Abx (Adult) Additional Instructions: Please follow-up with PCP within 24-48 hours and return immediately if symptoms worsen. Ibuprofen/Tylenol can be used simultaneously for greater fever/pain control. Benadryl is good for cough, congestion, and sleep. Keep hydrated. Advance diet as tolerated. Print Language: Gibraltarian Stand Alone Forms: Patient Portal Info Letter PA/CHILDCARE PROVIDER Supervising Physician PA/KEISHA Supervising Physician: Dr. De Anda
[2025-05-08] MEDS: NAPROXEN 250 MG TABLET 500 MG PO (23:41)
[2025-05-09 00:36] LABS: Strep A Rapid Negative (Negative)
== END 2025-05-09 00:47 | disposition home or self-care (01) ==
PROVIDERS: Physician Assistant; Emergency Provider Emergency Medicine
DX: J06.9 Acute upper respiratory infection, unspecified (principal)
CPT/HCPCS: 87651; 87811; 99283; A9270